=== PATIENT | female | born 1965 ===

== ENCOUNTER 2025-05-08 12:52 | Outpatient (AMB) | payer MEDICARE, MEDICAID, SELFPAY ==
[2025-05-08 13:06] VITALS: BMI 34.7
--- NOTE | 2025-05-08 13:06 | A.PHYSOV_ITS ---
Vital Signs 05/08/25 13:06 Height 5 ft 4 in Weight 202 lb BMI 34.7 Intake Visit Reasons: F/U AFTER INJECTION 02/06/2025 AND 3M FUV Intake Note: Patient in the office today for her 3 month narcotic medication follow up and follow up after Bilateral L4 Transforaminal Epidural Injection 02/06/25. Patient also requesting a left shoulder injection. Cardiology Rn Required: No Allergies No Known Allergies Allergy (Verified 05/08/25 13:08) HPI Comments Details: History of Present Illness The patient is a 59-year-old female presenting with chronic pain management. She has chronic pain in her neck, lower back, and both knees, managed with oxycodone 10 mg three times daily as needed, which has improved her quality of life. She has undergone multiple lumbar and cervical procedures, including a recent bilateral L4 transforaminal epidural steroid injection on February 06, 2025, with this being her first follow-up visit post-procedure. She reports much better pain control in her lower back and both legs after the procedure. She reports at least 90% improvement after lumbar epidural injections. The patient reports increased left shoulder pain despite a subacromial injection on October 24, 2024, which initially provided relief. She also has a history of cervical radiculitis, previously treated with neck injections. Pain Description - Onset and Timing: Chronic pain in neck, lower back, and knees; increasing pain in left shoulder - Quality and Character: Heavy pain in the shoulder, significant when lifting the arm - Primary Location: Neck, lower back, both knees, left shoulder - Areas of Radiation: Pain radiates from neck to shoulder - Exacerbating Factors: Lifting the arm increases shoulder pain - Relieving Factors: Previous injections provided temporary relief Results [facility] Medical History (Updated 05/08/25 @ 13:36 by Nima Silva DO) Chronic pain syndrome Neck pain Low back pain Chronic lumbar radiculopathy Cervical radiculitis Rotator cuff impingement syndrome of left shoulder Surgical History History of knee replacement procedure of left knee (Unknown) History of hysterectomy (Unknown) History of cholecystectomy (Unknown) History of carpal tunnel release (Unknown) History of cancer surgery (Unknown) Social History Alcohol intake: current Alcohol intake frequency: does not drink Patient Tobacco Use Status: Former Tobacco user Current occupational status: retired Review of Systems Narrative Review of Systems - Musculoskeletal: Reports chronic pain in neck, lower back, knees, and left shoulder; denies other musculoskeletal symptoms Patient denies any change in bowel bladder habits, she denies any fever or chills, she denies uncontrolled depression or suicidal ideation. Physical Exam Exam Exam: Physical Exam Patient appears to be in no acute distress, appropriately conversant and oriented. She ambulates without antalgia. Gait was mottling. She was able to perform heel walk and toe walk with support for balance. Lumbar extension was restricted. Spurling maneuver was negative. Lhermitte's sign was negative. Examination of the left shoulder reveals painful and restricted range of motion in all planes. Positive Harris and Neer signs, negative shoulder apprehension test. Neurological examination of upper and lower extremities was nonfocal. Patient demonstrated no upper motor neuron signs. Vital Signs: BMI result Body Mass Index 34.7 Office Procedures AMB Shoulder Injection AMB Shoulder Injection Procedure Details: After informed consent was obtained, posterior aspect of the left shoulder was prepped with Betadine. 1.5 in 22 gauge hypodermic needle was introduced percutaneously and advanced into the subacromial area. After negative aspiration for blood total volume of 6 cc containing 40 mg of triamcinolone and 2% lidocaine was injected without resistance. Patient tolerated procedure very well without complications with excellent anesthetic response. Shoulder Injection - : Left All charges added?: Procedure code (CPT) selection complete Office Meds Kenalog 40 mg/mL suspension for injection Performing Provider: Nima Silva DO Performing Location: [facility] Administered by: Nima Silva DO on 05/08/25 13:29 Dose Route Admin Location Dispensed Lot Number Expiration Date [facility] Formation [employer] 40 mg intra-articular 1 mL [id number] [employer] Total Dispensed Waste 1 mL 0 % lidocaine (PF) 20 mg/mL (2 %) injection solution Performing Provider: Nima Silva DO Performing Location: [facility] Administered by: Nima Silva DO on 05/08/25 13:29 Dose Route Admin Location Dispensed Lot Number Expiration Date [facility] Formation F[employer] 100 mg intra-articular 5 mL [id number] Total Dispensed Waste 5 mL 0 % Assessment & Plan Assessment & Plan (1) Rotator cuff impingement syndrome of left shoulder: Code(s): M75.42 - Impingement syndrome of left shoulder Category: Medical (2) Cervical radiculitis: Code(s): M54.12 - Radiculopathy, cervical region Category: Medical (3) Chronic lumbar radiculopathy: Code(s): M54.16 - Radiculopathy, lumbar region Category: Medical (4) Low back pain: Code(s): M54.50 - Low back pain, unspecified Category: Medical Qualifiers: Chronicity: chronic Back pain laterality: bilateral Sciatica presence: with sciatica Sciatica laterality: bilateral sciatica Qualified Code(s): M54.42 - Lumbago with sciatica, left side; M54.41 - Lumbago with sciatica, right side; G89.29 - Other chronic pain (5) Neck pain: Code(s): M54.2 - Cervicalgia Category: Medical (6) Chronic pain syndrome: Code(s): G89.4 - Chronic pain syndrome Category: Medical Plan Pain Management - Affect: Pain impacts daily activities, especially lifting the arm - Analgesia: Oxycodone 10 mg three times daily as needed, effective in managing pain - Adverse Effects: None reported - Activities of Daily Living: Pain affects ability to lift arm, but overall quality of life improved with medication - Aberrant Drug Related Behaviors: None reported Plan Patient was informed and verbally consented to the use of an ambient scribe for clinic note documentation during this visit. 1. Chronic Pain In The Neck, Lower Back, And Both Knees The patient will continue with her current pain management regimen of oxycodone 10 mg three times daily as needed, which has been effective in controlling her pain and improving her quality of life. Follow-up is recommended in three months, or sooner if her condition worsens. 2. Left Shoulder Pain She had excellent results with left shoulder subacromial injection previously performed on 10/24/2024. She would like to repeat the procedure. Risks and benefits of the procedure were discussed with the patient. Potential alternative measures were also discussed. Patient understands that the procedure is completely elective. Potential side effects associated with injectable medications were discussed. All questions were answered to the patient's satisfaction. 3. Pinched Nerve The patient has a history of a pinched nerve, previously treated with neck injections. If symptoms persist or worsen, further evaluation and possible repeat injections may be necessary. Discussion Notes During the visit, we discussed the patient's ongoing pain management plan, including the continuation of oxycodone for chronic pain in the neck, lower back, and knees. We also reviewed her left shoulder pain, noting the previous subacromial injection and considering further intervention if necessary. The patient was advised to follow up in three months or sooner if her symptoms worsen, and to contact us if there are any issues with her medication refills. She will follow-up in 3 months or sooner if necessary. I will renew her prescription for oxycodone today. Prescription monitoring report was reviewed. Patient Instructions - Continue taking oxycodone 10 mg three times daily as needed for pain managemen t. - Monitor shoulder pain and report any worsening symptoms. - Schedule a follow-up appointment in three months or sooner if symptoms worsen. - Contact the clinic if there are any issues with medication refills. Orders: Orders AMB Shoulder Injection Today M75.42 - Impingement syndrome of left shoulder Medications: New oxycodone Partial fill upon request 10 mg PO TID PRN 84 tabs 0RF pain G89.29 - Other chronic pain, G89.4 - Chronic pain syndrome, M54.12 - Radiculopathy, cervical region, M54.16 - Radiculopathy, lumbar region, M54.2 - Cervicalgia, M54.41 - Lumbago with sciatica, right side, M54.42 - Lumbago with sciatica, left side, M75.42 - Impingement syndrome of left shoulder Coding Level of Care Code Est Pt Level 4 (63583) Complex EM visit Add On G2211 Diagnoses Rotator cuff impingement syndrome of left shoulder M75.42 Cervical radiculitis M54.12 Chronic lumbar radiculopathy M54.16 Chronic bilateral low back pain with bilateral sciatica M54.42; M54.41; G89.29 Chronicity: chronic Back pain laterality: bilateral Sciatica presence: with sciatica Sciatica laterality: bilateral sciatica Neck pain M54.2 Chronic pain syndrome G89.4 CPT Codes AMB Shoulder Injection - Hip/Bursa Injection - : Left ([id number])
== END 2025-05-08 13:37 | disposition home or self-care (01) ==
LOC: HO.HPHYS 12:52
PROVIDERS: Visit Provider Physical Medicine & Rehabilitation
DX: M75.42 Impingement syndrome of left shoulder (principal); M54.12 Radiculopathy, cervical region; M54.16 Radiculopathy, lumbar region; M54.42 Lumbago with sciatica, left side; M54.41 Lumbago with sciatica, right side; G89.29 Other chronic pain; M54.2 Cervicalgia; G89.4 Chronic pain syndrome
CPT/HCPCS: 20610; 99214

== ENCOUNTER → 2025-05-08 12:52 | Outpatient (BNVA) | payer MEDICARE, MEDICAID, SELFPAY | PROVIDERS: Visit Provider Physical Medicine & Rehabilitation | DX: M75.42 Impingement syndrome of left shoulder (principal); M54.12 Radiculopathy, cervical region; M54.16 Radiculopathy, lumbar region; M54.42 Lumbago with sciatica, left side; M54.41 Lumbago with sciatica, right side; M54.2 Cervicalgia; G89.4 Chronic pain syndrome | CPT/HCPCS: 20610; 99212; J2003; J3301 ==